=== PATIENT | female | born 1980 | race Caucasian/White ===

== ENCOUNTER 2021-10-23 19:05 | Emergency (ER) | payer OTHER ==
[~2021-10-23] VITALS: Ht 167.6 cm; Wt 86.2 kg
[2021-10-23 19:35] VITALS: BP_SYST 133
--- NOTE | 2021-10-23 19:35 | NUR ---
Pt c/o worsening in anxiety after feeling dizzy at work. Pt c/o numbness to body and abdominal pain. Pt also c/o diarrhea x 4 days.
--- NOTE | 2021-10-23 19:38 | NUR ---
Dr. Lama assessing pt in triage room.
--- NOTE | 2021-10-23 19:40 | NUR ---
Pt BIB BLS, placed to ER waiting room in stable condition.
[2021-10-23] MEDS ORDERED: LORazepam 1 MG TABLET PO ONE (19:45)
[2021-10-23 20:56] VITALS: BP_SYST 128
--- NOTE | 2021-10-23 20:56 | NUR ---
Patient given written and verbal discharge instructions and verbalizes understanding. ER MD discussed with patient the results and treatment provided. Patient in stable condition. ID arm band removed. Patient educated on pain management and to follow up with PMD. Pain Scale 0/10. Opportunity for questions provided and answered. Medication side effect fact sheet provided.
== END 2021-10-23 20:56 | disposition home or self-care (01) ==
LOC: SED 19:05
DX: E86.0 Dehydration (principal); R42 Dizziness and giddiness; R55 Syncope and collapse; R03.0 Elevated blood-pressure reading, without diagnosis of hypertension; Z79.899 Other long term (current) drug therapy
CPT/HCPCS: 93005; 99283